=== PATIENT | male | born 2000 | race Caucasian/White ===

== ENCOUNTER 2021-08-05 15:46 | Emergency (ER) | payer OTHER ==
[2021-08-05] MEDS ORDERED: DIPHTH,PERTUSS(ACELL),TET 0.5 ML DISP.SYRIN IM ONE ×2 (16:13→17:14)
[2021-08-05] MEDS ORDERED: ACETAMINOPHEN 500 MG TABLET (FP) PO ONE (16:13)
[2021-08-05 16:16] VITALS: BP 116/74; PULSE 88; TEMP 98.2; BMI 23.1
[2021-08-05] MEDS ORDERED: ACETAMINOPHEN 325 MG TABLET (FP) ONE (17:14)
== END 2021-08-05 17:30 | disposition home or self-care (01) ==
LOC: JER 15:46
PROC: 3E0234Z Introduction of Serum, Toxoid and Vaccine into Muscle, Percutaneous Approach (ICD-10-PCS; principal; 2021-08-05)
DX: R07.89 Other chest pain (principal); V49.50XA Passenger injured in collision with unspecified motor vehicles in traffic accident, initial encounter
CPT/HCPCS: 71045-TC-FY; 90715; 93005; 93010; 99284-25